=== PATIENT | male | born 1970 | race Caucasian/White ===

== ENCOUNTER 2022-01-14 21:33 | Emergency (ER) | payer OTHER ==
[2022-01-14 23:10] LABS: Mean Corpuscular HGB CONC 33.2 g/dL (32.0-36.0); Mean Corpuscular Hemoglobin 33.4 pg (27.0-31.0); Mean Platelet Volume 8.1 fL (7.4-10.4); Platelet Count 147 thou/uL (130-400); RBC Distribution Width 12.3 % (11.5-14.5); Red Blood Cell (RBC) Count 4.19 mill/uL (4.70-6.10); White Blood Cell (WBC) Count 6.4 thou/uL (4.8-10.8)
[2022-01-14 23:30] LABS: ALT (SGPT) 21 U/L (8-55); AST (SGOT) 16 U/L (5-34); Albumin 3.9 g/dL (3.5-5.0); Alkaline Phosphatase 72 U/L (40-110); Anion Gap 13 mmol/L (10-20); BUN (Urea Nitrogen) 9 mg/dL (8.9-20.6); Bilirubin, Total 0.3 mg/dL (0.2-1.2); Calc. Creatinine Clearance 0 mL/min (70-130); Calcium 9.2 mg/dL (7.8-10.44); Carbon Dioxide 26 mmol/L (22-29); Chloride 105 mmol/L (98-107); Estimated GFR 107; Glucose 109 mg/dL (70-105); Large Platelets SLIGHT; Lymphocytes 56 % (21-51); MDiff Complete? YES; Macrocytosis SLIGHT = 6-15 cells (100X) (0-5/hpf); Monocytes 9 % (0-10); Neutrophil 28 % (42-75); Ovalocytes SLIGHT = 2-5 cells (100X) (0-1/hpf); Platelet Morphology Comment Appears Adequate; Potassium 3.4 mmol/L (3.5-5.1); Protein, Total 6.9 g/dL (6.0-8.3); Reactive Lymphocytes 7 % (0-10); Sodium 141 mmol/L (136-145)
[2022-01-15 00:37] LABS: Bilirubin Negative (Negative); Blood, Urine Negative (Negative); Clarity Clear (Clear); Glucose, Urine (Dipstick) Normal (Negative); Ketone, Urine Trace mg/dL (Negative); Leukocyte Negative Leu/uL (Negative); Nitrite Negative (Negative); Protein, Urine (Dipstick) 20 mg/dL (Neg-Trace)
[2022-01-15] MEDS ORDERED: Ibuprofen 800 MG TAB ONE (01:05)
[2022-01-15 11:23] LABS: Chlam.trachomatis by PCR,Urine Not Detected (NotDetected)
== END 2022-01-15 01:29 | disposition home or self-care (01) ==
LOC: ERS 21:33
DX: N50.82 Scrotal pain (principal); I86.1 Scrotal varices; N43.3 Hydrocele, unspecified; E78.00 Pure hypercholesterolemia, unspecified; J44.9 Chronic obstructive pulmonary disease, unspecified
CPT/HCPCS: 76870; 80053; 81003; 85025; 87086; 87491; 87591; 93976

== ENCOUNTER 2022-01-22 14:03 | Emergency (ER) | payer OTHER ==
[2022-01-22 17:11] LABS: Bacteria/HPF None Seen HPF (None Seen); Bilirubin Negative (Negative); Blood, Urine Negative (Negative); Clarity Clear (Clear); Glucose, Urine (Dipstick) Normal (Negative); Ketone, Urine 10 mg/dL (Negative); Leukocyte Negative Leu/uL (Negative); Nitrite Negative (Negative); Protein, Urine (Dipstick) 30 mg/dL (Neg-Trace); RBC/HPF 0-3 HPF (0-3); Specific Gravity, Urine 1.028 (1.002-1.036); Squamous Epithelial 0-3 HPF (0-3); WBC/HPF 0-3 HPF (0-3)
== END 2022-01-22 21:46 | disposition home or self-care (01) ==
LOC: ERS 14:03
DX: M79.605 Pain in left leg (principal); M79.604 Pain in right leg; I86.1 Scrotal varices; N43.3 Hydrocele, unspecified; J44.9 Chronic obstructive pulmonary disease, unspecified; E78.00 Pure hypercholesterolemia, unspecified; F17.210 Nicotine dependence, cigarettes, uncomplicated
CPT/HCPCS: 76870; 81003; 81015; 93976

== ENCOUNTER 2022-02-03 16:11 | Emergency (ER) | payer OTHER ==
[2022-02-03 16:49] LABS: #Lymphocytes 2.5 thou/uL (1.20-3.40); #Monocytes 0.4 thou/uL (0.11-0.59); #Neutrophils 2.1 thou/uL (1.40-6.50); %Basophils 0.1 % (0.0-1.0); %Eosinophils 0.8 % (0.0-10.0); %Lymphocytes 48.8 % (21.0-51.0); %Monocytes 8.7 % (0.0-10.0); %Neutrophils 41.7 % (42.0-75.0); Hemoglobin 14.8 g/dL (14.0-18.0); Mean Corpuscular HGB CONC 33.9 g/dL (32.0-36.0); Mean Platelet Volume 9.1 fL (7.4-10.4); Platelet Count 127 thou/uL (130-400); RBC Distribution Width 12.3 % (11.5-14.5); Red Blood Cell (RBC) Count 4.35 mill/uL (4.70-6.10); White Blood Cell (WBC) Count 5.1 thou/uL (4.8-10.8)
[2022-02-03 17:09] LABS: ALT (SGPT) 27 U/L (8-55); AST (SGOT) 19 U/L (5-34); Acetaminophen Less than 10.0 mcg/mL (10.0-30.0); Albumin 4.2 g/dL (3.5-5.0); Alcohol Less than 10 mg/dL (Less than 10); Alkaline Phosphatase 84 U/L (40-110); Anion Gap 14 mmol/L (10-20); BUN (Urea Nitrogen) 10 mg/dL (8.9-20.6); Bilirubin, Total 0.7 mg/dL (0.2-1.2); Calc. Creatinine Clearance 0 mL/min (70-130); Calcium 9.4 mg/dL (7.8-10.44); Carbon Dioxide 22 mmol/L (22-29); Chloride 108 mmol/L (98-107); Estimated GFR 108; Glucose 98 mg/dL (70-105); Potassium 3.9 mmol/L (3.5-5.1); Protein, Total 7.2 g/dL (6.0-8.3); Salicylate Less than 8.0 mg/dL (15.0-30.0); Sodium 140 mmol/L (136-145)
[2022-02-03] MEDS ORDERED: Ibuprofen 200 MG TAB ONE ×2 (17:35→17:38)
[2022-02-03 19:10] LABS: Bilirubin Negative (Negative); Blood, Urine Negative (Negative); Clarity Clear (Clear); Glucose, Urine (Dipstick) Normal (Negative); Ketone, Urine Trace mg/dL (Negative); Leukocyte Negative Leu/uL (Negative); Nitrite Negative (Negative); Protein, Urine (Dipstick) 10 mg/dL (Neg-Trace); Specific Gravity, Urine 1.024 (1.002-1.036); Urobilinogen 3 mg/dL (Less than 2)
[2022-02-03 19:14] LABS: Amphetamine Not Detected (NotDetected); Barbiturates Screen Not Detected (NotDetected); Benzodiazepine Screen Not Detected (NotDetected); Cocaine Metabolite Screen Not Detected (NotDetected); Methadone Not Detected (NotDetected); Methamphetamine Not Detected (NotDetected); Opiate Screen Not Detected (NotDetected); Oxycodone Screen Not Detected (NotDetected); Phencyclidine (PCP) Not Detected (NotDetected); THC/Cannabinoid Screen Not Detected (NotDetected); Tricyclic Screen Detected (NotDetected)
[2022-02-04 06:21] LABS: SARS-CoV-2 NAA Rapid Test Not Detected (NotDetected)
[2022-02-04] MEDS ORDERED: Cyclobenzaprine 10 MG TAB ONE (13:05)
[2022-02-04] MEDS ORDERED: Meclizine HCl 25 MG TAB ONE ×2 (13:05→22:54)
[2022-02-04] MEDS ORDERED: Divalproex Sodium 250 MG (DR) TAB ONE ×2 (13:05→22:54)
[2022-02-04] MEDS ORDERED: hydrOXYzine 25 MG TAB ONE ×2 (13:05→22:54)
[2022-02-04] MEDS ORDERED: Tamsulosin HCl 0.4 MG CAP PO SCH (15:00)
[2022-02-04] MEDS ORDERED: Escitalopram Oxalate 20 mg Tablet PO SCH (15:00)
[2022-02-04] MEDS ORDERED: Gabapentin 300 MG CAP PO SCH (15:00)
[2022-02-04] MEDS ORDERED: Cholecalciferol 1,000 UNITS (25 MCG) TAB PO SCH (21:00)
[2022-02-04] MEDS ORDERED: Meclizine HCl 25 MG TAB PO SCH (21:00)
[2022-02-04] MEDS ORDERED: hydrOXYzine 25 MG TAB PO SCH (21:00)
[2022-02-04] MEDS ORDERED: Fish Oil 1,000 MG CAP PO SCH (21:00)
[2022-02-04] MEDS ORDERED: Cyclobenzaprine 10 MG TAB PO SCH (21:00)
[2022-02-04] MEDS ORDERED: Atorvastatin Calcium 10 MG TAB PO SCH (21:00)
[2022-02-04] MEDS ORDERED: Mirtazapine 15 MG TAB PO SCH (21:00)
[2022-02-04] MEDS ORDERED: Divalproex Sodium DR 500 MG TAB PO SCH ×2 (21:00)
[2022-02-05] MEDS ORDERED: Divalproex Sodium DR 500 MG TAB PO SCH (09:00)
== END 2022-02-05 17:25 ==
LOC: ERS 16:11
DX: F32.9 Major depressive disorder, single episode, unspecified (principal); Z20.822 Contact with and (suspected) exposure to COVID-19; E78.00 Pure hypercholesterolemia, unspecified; J44.9 Chronic obstructive pulmonary disease, unspecified; F17.210 Nicotine dependence, cigarettes, uncomplicated; Z79.899 Other long term (current) drug therapy
CPT/HCPCS: 36415; 80053; 80306; 80307; 81003; 84443; 85025; 99285; U0002

== ENCOUNTER 2022-03-03 16:22 | Emergency (ER) | payer OTHER, SELFPAY ==
[2022-03-03] MEDS ORDERED: LORazepam 2 MG/ML SYR.(CARPUJECT) ONE (16:43)
[2022-03-03] MEDS ORDERED: Ketorolac Tromethamine 30 MG/ML VIAL ONE (17:39)
[2022-03-03 17:59] LABS: Hemoglobin 14.1 g/dL (14.0-18.0); Mean Corpuscular HGB CONC 33.1 g/dL (32.0-36.0); Mean Corpuscular Hemoglobin 33.3 pg (27.0-31.0); Mean Platelet Volume 8.4 fL (7.4-10.4); Platelet Count 131 10x3/uL (130-400); RBC Distribution Width 12.8 % (11.5-14.5); Red Blood Cell (RBC) Count 4.23 mill/uL (4.70-6.10); White Blood Cell (WBC) Count 6.2 10x3/uL (4.8-10.8)
[2022-03-03 18:20] LABS: ALT (SGPT) 27 U/L (8-55); AST (SGOT) 21 U/L (5-34); Albumin 3.8 g/dL (3.5-5.0); Alkaline Phosphatase 72 U/L (40-110); Anion Gap 14 mmol/L (10-20); BUN (Urea Nitrogen) 12 mg/dL (8.4-25.7); Bilirubin, Total 0.5 mg/dL (0.2-1.2); Calc. Creatinine Clearance 0 mL/min (70-130); Calcium 8.7 mg/dL (7.8-10.44); Carbon Dioxide 22 mmol/L (22-29); Chloride 108 mmol/L (98-107); Estimated GFR 108; Globulin 3.2 g/dL (2.4-3.5); Glucose 92 mg/dL (70-105); Potassium 3.9 mmol/L (3.5-5.1); Sodium 140 mmol/L (136-145)
[2022-03-03 18:34] LABS: Band 1 % (5-11); Lymphocytes 42 % (21-51); MDiff Complete? YES; Macrocytosis SLIGHT = 6-15 cells (100X) (0-5/hpf); Monocytes 13 % (0-10); Neutrophil 43 % (42-75); Platelet Morphology Comment Appears Adequate; Polychromasia SLIGHT = 2-3 cells (100X) (0-2/hpf)
== END 2022-03-03 19:21 | disposition home or self-care (01) ==
LOC: ERS 16:22
DX: R25.1 Tremor, unspecified (principal); R56.9 Unspecified convulsions; E78.00 Pure hypercholesterolemia, unspecified; J44.9 Chronic obstructive pulmonary disease, unspecified; F17.210 Nicotine dependence, cigarettes, uncomplicated; Z79.899 Other long term (current) drug therapy
CPT/HCPCS: 80053; 85025; 93005; 96361; 96374; 96375; J1885

== ENCOUNTER 2022-03-06 21:12 | Emergency (ER) | payer SELFPAY ==
[2022-03-06] MEDS ORDERED: Ketorolac Tromethamine 30 MG/ML VIAL ONE (22:15)
== END 2022-03-06 23:30 | disposition home or self-care (01) ==
LOC: ERS 21:12
DX: S93.401A Sprain of unspecified ligament of right ankle, initial encounter (principal); S93.601A Unspecified sprain of right foot, initial encounter; J44.9 Chronic obstructive pulmonary disease, unspecified; E78.00 Pure hypercholesterolemia, unspecified; F17.210 Nicotine dependence, cigarettes, uncomplicated; W50.2XXA Accidental twist by another person, initial encounter; Z79.899 Other long term (current) drug therapy
CPT/HCPCS: 96372; J1885